=== PATIENT | male | born 1950 | race Caucasian/White ===

== ENCOUNTER → 2018-11-06 | Outpatient (CLI) | payer MEDICARE | END | disposition home or self-care (01) | LOC: CVU 10:39 | PROVIDERS: ATTEND Internal Medicine Cardiovascular Disease | DX: I35.1 Nonrheumatic aortic (valve) insufficiency (principal); I42.9 Cardiomyopathy, unspecified | CPT/HCPCS: 93306 ==

== ENCOUNTER 2019-04-28 06:35 | Day surgery (SDC) | payer MEDICARE ==
[~2019-04-28] VITALS: Ht 185.4 cm; Wt 145.4 kg
[2019-04-28] MEDS ORDERED: LIDOCAINE 1%, 20ML ONE (06:42)
[2019-04-28] MEDS ORDERED: SODIUM CHLORIDE 0.9% 1,000 ML IV SCH (07:00)
[2019-04-28 07:02] VITALS: BP 136/86
[2019-04-28] MEDS ORDERED: ASPI81TA45 PO (07:11)
[2019-04-28] MEDS ORDERED: METO25TA35 PO (07:13)
[2019-04-28] MEDS ORDERED: RIVA20TA PO (07:13)
[2019-04-28] MEDS ORDERED: VIT1CAPS6 PO (07:13)
[2019-04-28] MEDS ORDERED: PRAS10TA4 PO (07:13)
[2019-04-28] MEDS ORDERED: ATOR40TA78 PO (07:13)
[2019-04-28] MEDS ORDERED: FURO-92 PO (07:13)
[2019-04-28] MEDS ORDERED: ACET-76 PO (07:16)
[2019-04-28] MEDS ORDERED: MIDAZOLAM 1 MG/ML, 2ML ONE ×2 (07:29→07:59)
[2019-04-28] MEDS ORDERED: ISOPROTERENOL 0.2MG/ML, 5ML ONE ×2 (07:29→08:50)
[2019-04-28] MEDS ORDERED: FENTANYL PF 100 MCG/2ML ONE (07:29)
[2019-04-28] MEDS ORDERED: ADENOSINE 6 MG/2 ML ONE (07:29)
[2019-04-28] MEDS ORDERED: FENTANYL PF 250 MCG/5ML ONE (08:00)
[2019-04-28] MEDS ORDERED: PROPOFOL 10 MG/ML, 20ML ONE (08:03)
[2019-04-28] MEDS ORDERED: PHENYLEPHRINE 10 MG/ML ONE (08:03)
[2019-04-28] MEDS ORDERED: VASOPRESSIN 20 UNIT/ML, 1ML ONE (08:03)
[2019-04-28] MEDS ORDERED: ROCURONIUM 10MG/ML,5ML ONE (08:03)
[2019-04-28] MEDS ORDERED: SUCCINYLCHOLINE 20 MG/ML, 10ML ONE (08:03)
[2019-04-28] MEDS ORDERED: DEXAMETHASONE 4 MG/ML, 1ML ONE ×2 (08:03)
[2019-04-28] MEDS ORDERED: ACETAMINOPHEN 500 MG TABLET PO PRN (09:30)
[2019-04-28] MEDS ORDERED: ONDANSETRON 2MG/ML, 2ML ONE (09:33)
[2019-04-28] MEDS ORDERED: MORPHINE SULFATE 4 MG/ML, 1ML IVPush PRN (10:30)
[2019-04-28] MEDS ORDERED: HYDROmorphone 2 MG/ML, 1ML IVPush PRN (10:30)
[2019-04-28] MEDS ORDERED: MIDAZOLAM 1 MG/ML, 2ML IV PRN (10:30)
[2019-04-28] MEDS ORDERED: OXYcodone 5 MG/5 ML ORAL.SOL UDC PO PRN (10:30)
[2019-04-28] MEDS ORDERED: ONDANSETRON ODT 8 MG PO PRN (10:30)
[2019-04-28] MEDS ORDERED: PROMETHAZINE 25 MG/ML, 1ML IV PRN (10:30)
[2019-04-28] MEDS ORDERED: FENTANYL PF 100 MCG/2ML IV PRN (10:30)
[2019-04-28] MEDS ORDERED: hydrALAzine 20 MG/ML, 1ML IV PRN (10:30)
[2019-04-28] MEDS ORDERED: ONDANSETRON 2MG/ML, 2ML IV PRN (10:30)
[2019-04-28] MEDS ORDERED: LABETALOL 5MG/ML, 20ML IV PRN (10:30)
[2019-04-28] MEDS ORDERED: ACETAMINOPHEN 325 MG TABLET PO PRN (10:30)
[2019-04-28] MEDS ORDERED: DIAZEPAM 5 MG/ML, 2ML IVPush PRN (10:30)
[2019-04-28] MEDS ORDERED: HALOPERIDOL 5 MG/ML IV PRN (10:30)
[2019-04-28] MEDS ORDERED: ALBUTEROL SULFATE 2.5 MG/3 ML NPPB PRN (10:30)
[2019-04-28] MEDS ORDERED: PROMETHAZINE 12.5 MG SUPP PR PRN (10:30)
[2019-04-28] MEDS ORDERED: EPHEDRINE 50 MG/ML, 1ML IVPush PRN (10:30)
[2019-04-28] MEDS ORDERED: MEPERIDINE/PF 25MG/0.5ML IVPush PRN (10:30)
[2019-04-28] MEDS ORDERED: ATORVASTATIN 40 MG TABLET PO SCH (21:00)
[2019-04-29] MEDS ORDERED: VIT C PO SCH (09:00)
[2019-04-29] MEDS ORDERED: RIVAROXABAN 20 MG TABLET PO SCH (09:00)
[2019-04-29] MEDS ORDERED: CHERRY PO SCH (09:00)
[2019-04-29] MEDS ORDERED: GRP E PO SCH (09:00)
[2019-04-29] MEDS ORDERED: ASPIRIN 81 MG TABLET EC PO SCH (09:00)
[2019-04-29] MEDS ORDERED: PRASUGREL 10 MG TABLET PO SCH (09:00)
[2019-04-29] MEDS ORDERED: [UNRECOGNIZED DRUG - OTHER] PO SCH (09:00)
[2019-04-29] MEDS ORDERED: FUROSEMIDE 40 MG TABLET PO SCH (09:00)
[2019-04-29] MEDS ORDERED: METOPROLOL TARTRATE 25 MG TABLET PO SCH (09:00)
[2019-04-29] MEDS ORDERED: CELERY EX PO SCH (09:00)
== END 2019-04-28 17:48 | disposition home or self-care (01) ==
LOC: CACL 06:35 → 5SO 10:57 → CACL 11:19 → 5SO 11:20 → UNDOADMIN 11:20 → CACL 17:48 → UNDODISIN 17:48
PROVIDERS: ATTEND Internal Medicine Cardiovascular Disease
DX: I47.1 Supraventricular tachycardia (principal); I10 Essential (primary) hypertension; I25.10 Atherosclerotic heart disease of native coronary artery without angina pectoris; E66.01 Morbid (severe) obesity due to excess calories; Z68.45 Body mass index [BMI] 70 or greater, adult; Z72.89 Other problems related to lifestyle; Z79.82 Long term (current) use of aspirin; Z79.01 Long term (current) use of anticoagulants; Z79.899 Other long term (current) drug therapy; Z88.5 Allergy status to narcotic agent; Z86.718 Personal history of other venous thrombosis and embolism; Z86.711 Personal history of pulmonary embolism; Z95.5 Presence of coronary angioplasty implant and graft
CPT/HCPCS: 93613; 93621; 93623; 93653; C1730; C1766; C1894; C2630; J0153; J0330; J1100; J2250; J2370; J2405; J2704; J3010; G0378

== ENCOUNTER → 2019-11-17 | Outpatient (CLI) | payer MEDICARE ==
[~2019-11-17] MED LIST: ACET-76 PO; ASPI81TA45 PO; ATOR40TA78 PO; FURO-92 PO; METO25TA35 PO; PRAS10TA4 PO; RIVA20TA PO; VIT1CAPS6 PO
== END | disposition home or self-care (01) ==
LOC: CVU 13:16
PROVIDERS: ATTEND Internal Medicine Cardiovascular Disease
DX: I71.2 Thoracic aortic aneurysm, without rupture (principal); I10 Essential (primary) hypertension
CPT/HCPCS: 93306